=== PATIENT | female | born 1960 | race Caucasian/White ===

== ENCOUNTER → 2019-10-04 14:46 | Outpatient (BNVA) | payer MEDICARE, OTHER, SELFPAY | PROVIDERS: PCP Family Medicine; Visit Provider Internal Medicine Rheumatology | DX: M19.90 Unspecified osteoarthritis, unspecified site (principal); M06.4 Inflammatory polyarthropathy; M35.9 Systemic involvement of connective tissue, unspecified; Z79.899 Other long term (current) drug therapy; R79.82 Elevated C-reactive protein (CRP); K11.1 Hypertrophy of salivary gland; R76.8 Other specified abnormal immunological findings in serum; Z79.52 Long term (current) use of systemic steroids | CPT/HCPCS: 99214; 99999 ==

== ENCOUNTER → 2019-11-16 12:52 | Outpatient (BNVA) | payer MEDICARE, OTHER, SELFPAY | PROVIDERS: PCP Family Medicine; Visit Provider Internal Medicine Rheumatology | DX: R76.8 Other specified abnormal immunological findings in serum (principal); M35.9 Systemic involvement of connective tissue, unspecified; Z79.899 Other long term (current) drug therapy; M19.90 Unspecified osteoarthritis, unspecified site; K11.1 Hypertrophy of salivary gland; Z79.52 Long term (current) use of systemic steroids | CPT/HCPCS: 99214 ==

== ENCOUNTER → 2020-02-17 13:21 | Outpatient (BNVA) | payer MEDICARE, OTHER, SELFPAY | PROVIDERS: PCP Family Medicine; Visit Provider Internal Medicine Rheumatology | DX: M32.9 Systemic lupus erythematosus, unspecified (principal); M35.9 Systemic involvement of connective tissue, unspecified; R76.8 Other specified abnormal immunological findings in serum; M06.4 Inflammatory polyarthropathy; Z79.899 Other long term (current) drug therapy; M19.90 Unspecified osteoarthritis, unspecified site; K11.1 Hypertrophy of salivary gland; Z79.01 Long term (current) use of anticoagulants | CPT/HCPCS: 36415; 81001; 82570; 83516; 84156; 86038; 86160; 99214 ==

== ENCOUNTER 2020-05-02 12:55 | Outpatient (CLI) | payer MEDICARE, OTHER, SELFPAY ==
[2020-05-02 13:11] VITALS: BP 113/79; PULSE 93; RESP 16; TEMP 36.7; O2SAT 95
[2020-05-02] MEDS: acetaminophen 325 mg Tablet 975 MG PO (13:35)
[2020-05-02] MEDS: diphenhydrAMINE 25 mg Capsule PO (13:35)
[2020-05-02 15:10] VITALS: BP 129/82; PULSE 84; RESP 16; O2SAT 95
--- NOTE | 2020-05-02 15:19 | PC.NURSE ---
1510 pt resting with eyes closed, c/o of heart racing. at chair side. VS obtained. Auscultated heart tones. Occasional extra tone, otherwise regular with rate 84-90. VS WNL. Dr. Adamson notified.
[2020-05-02 15:49] VITALS: BP 150/95; PULSE 83; RESP 16
[2020-05-02 15:59] VITALS: BP 144/88; PULSE 80; RESP 16
== END 2020-05-02 12:56 | disposition home or self-care (01) ==
LOC: RHEOACUTE 12:58
PROVIDERS: PCP Family Medicine; Visit Provider Internal Medicine Rheumatology
DX: M32.9 Systemic lupus erythematosus, unspecified (principal); Z79.899 Other long term (current) drug therapy
CPT/HCPCS: 80076; 81001; 82565; 82570; 84156; 85025; 85651; 86140; 86160; 96365; 96375; J0490; J2920; J7050

== ENCOUNTER 2020-05-18 13:23 | Outpatient (CLI) | payer MEDICARE, OTHER, SELFPAY ==
[2020-05-18 13:20] VITALS: BP 146/84; PULSE 82; RESP 16; TEMP 36.5; O2SAT 95
[2020-05-18] MEDS: acetaminophen 325 mg Tablet 975 MG PO (13:51)
[2020-05-18] MEDS: diphenhydrAMINE 25 mg Capsule PO (13:51)
[2020-05-18 14:57] VITALS: BMI 36.7
--- NOTE | 2020-05-18 15:38 | PC.NURSE ---
1400 Benlysta infusion started at 125ml/hr for 30 min. After 30 min, increased rate to 250ml/hr
--- NOTE | 2020-05-18 15:40 | PC.NURSE ---
1540 Infusion complete. Pt sleeping. Resp even and unlabored. Tubing flushed with NS 10ml.
[2020-05-18 16:23] VITALS: BP 154/93; PULSE 77; RESP 16; O2SAT 97
--- NOTE | 2020-05-18 16:23 | PC.NURSE ---
1615 Pt awake. States she's ready to go home. Ambulated to BR without difficulty.
== END 2020-05-18 13:24 | disposition home or self-care (01) ==
LOC: RHEOACUTE 13:25
PROVIDERS: PCP Family Medicine; Visit Provider Internal Medicine Rheumatology
DX: M32.9 Systemic lupus erythematosus, unspecified (principal); R76.8 Other specified abnormal immunological findings in serum; Z79.899 Other long term (current) drug therapy; M06.4 Inflammatory polyarthropathy; M19.90 Unspecified osteoarthritis, unspecified site; K11.1 Hypertrophy of salivary gland; R74.0 Nonspecific elevation of levels of transaminase and lactic acid dehydrogenase [LDH]; Z79.52 Long term (current) use of systemic steroids
CPT/HCPCS: 81001; 82565; 82570; 84156; 84520; 96365; 96375; 99214; J0490; J2920; J7050

== ENCOUNTER → 2020-06-22 09:58 | Outpatient (BNVA) | payer MEDICARE, OTHER, SELFPAY ==
[2020-06-22 10:12] VITALS: BP 138/85; PULSE 77; RESP 16; TEMP 36.2; O2SAT 95
[2020-06-22] MEDS: diphenhydrAMINE 25 mg Capsule PO (10:50)
[2020-06-22] MEDS: acetaminophen 325 mg Tablet 975 MG PO (10:50)
--- NOTE | 2020-06-22 11:49 | PC.NURSE ---
1115 Infusion started at 125ml/hr.
--- NOTE | 2020-06-22 11:49 | PC.NURSE ---
1145 Infusion increased to 200ml/hr
[2020-06-22 12:50] VITALS: BP 146/89; PULSE 82; RESP 16
== END ==
PROVIDERS: PCP Family Medicine; Visit Provider Internal Medicine Rheumatology
DX: M32.9 Systemic lupus erythematosus, unspecified (principal); R76.8 Other specified abnormal immunological findings in serum; Z79.899 Other long term (current) drug therapy
CPT/HCPCS: 96365; 96366; 96375; J0490; J2920; J7050

== ENCOUNTER 2020-06-22 10:00 | Outpatient (CLI) | payer MEDICARE, OTHER, SELFPAY | END 2020-06-22 10:01 | disposition home or self-care (01) | LOC: RHEOACUTE 10:01 | PROVIDERS: PCP Family Medicine; Visit Provider Internal Medicine Rheumatology | DX: M32.9 Systemic lupus erythematosus, unspecified (principal); R76.8 Other specified abnormal immunological findings in serum; Z79.899 Other long term (current) drug therapy | CPT/HCPCS: 80076; 81001; 82565; 82570; 84156; 85025; 85651; 86140; 86160; 96365; 96366; 96375; J0490; J2920; J7050 ==

== ENCOUNTER 2020-08-01 09:58 | Outpatient (CLI) | payer MEDICARE, BC, OTHER, SELFPAY ==
[2020-08-01 10:00] VITALS: BP 127/80; PULSE 80; RESP 16; TEMP 36.6; O2SAT 93
[2020-08-01] MEDS: diphenhydrAMINE 25 mg Capsule PO (10:32)
[2020-08-01] MEDS: acetaminophen 325 mg Tablet 975 MG PO (10:33)
--- NOTE | 2020-08-01 12:06 | PC.NURSE ---
Infusion complete. Line flushed with saline. Pt asleep.
[2020-08-01 13:25] VITALS: BP 133/90; PULSE 81; RESP 16; O2SAT 96
== END 2020-08-01 09:59 | disposition home or self-care (01) ==
LOC: RHEOACUTE 09:59
PROVIDERS: PCP Family Medicine; Visit Provider Internal Medicine Rheumatology
DX: M32.9 Systemic lupus erythematosus, unspecified (principal)
CPT/HCPCS: 96365; 96375; J0490; J2920; J7050

== ENCOUNTER 2020-10-10 13:03 | Outpatient (CLI) | payer MEDICARE, BC, SELFPAY ==
[2020-10-10 13:24] VITALS: BP 138/86; PULSE 75; RESP 16; TEMP 36.2; O2SAT 98
[2020-10-10] MEDS: acetaminophen 325 mg Tablet 975 MG PO (13:46)
[2020-10-10] MEDS: diphenhydrAMINE 25 mg Capsule PO (13:46)
[2020-10-10 15:44] VITALS: BP 133/77; PULSE 82; RESP 16; O2SAT 97
== END 2020-10-10 13:04 | disposition home or self-care (01) ==
LOC: RHEOACUTE 13:05
PROVIDERS: PCP Family Medicine; Visit Provider Internal Medicine Rheumatology
DX: M32.9 Systemic lupus erythematosus, unspecified (principal)
CPT/HCPCS: 96365; 96375; J0490; J2920; J7050

== ENCOUNTER 2020-11-21 12:44 | Outpatient (CLI) | payer MEDICARE, BC, SELFPAY ==
[2020-11-21] MEDS: diphenhydrAMINE 25 mg Capsule PO (13:34)
[2020-11-21] MEDS: acetaminophen 325 mg Tablet 975 MG PO (13:34)
[2020-11-21 13:47] LABS: Basophils # 0.1 10^3/uL (0.0-0.1); Basophils % 0.7 %; Eosinophils # 0.3 10^3/uL (0.0-0.8); Eosinophils % 2.1 %; Hematocrit 44.4 % (37.0-47.0); Hemoglobin 14.5 g/dL (11.5-15.3); Lymphocytes # 1.4 10^3/uL (0.8-4.8); Lymphocytes % 11.6 %; Mean Corpuscular HGB Conc 32.7 g/dL (30.0-36.0); Mean Corpuscular Hemoglobin 31.9 pg (28.0-34.0); Mean Corpuscular Volume 97.6 fL (81-99); Mean Platelet Volume 12.3 fL (7.4-10.4); Monocytes # 0.9 10^3/uL (0.2-0.9); Neutrophils # 9.44 10^3/uL (1.8-7.7); Nucleated Red Blood Cells % 0 %; Platelet Count 212 10^3/cmm (130-400); Red Blood Count 4.55 10^6/uL (4.1-5.3); Red Cell Distribution Width 13.6 % (12.1-15.1); White Blood Count 12.1 10^3/uL (4.0-10.0)
[2020-11-21 13:50] VITALS: BP 144/80; PULSE 77; RESP 18; TEMP 36.5; O2SAT 95
[2020-11-21 14:22] VITALS: BP 126/74; PULSE 76; RESP 18; TEMP 36.4; O2SAT 94
[2020-11-21 15:28] VITALS: BP 148/77; PULSE 86; RESP 18; TEMP 36.6; O2SAT 95
[2020-11-21 15:42] LABS: Alanine Aminotransferase 38 U/L (0-33); Albumin Level 4.3 g/dL (3.5-5.2); Alkaline Phosphatase 71 IU/L (35-105); Aspartate Amino Transferase 26 U/L (0-32); C Reactive Protein 6.1 mg/L (0.0-4.9); Complement C3 145 mg/dL (90-180); Globulin 2.6 g/dL (1.3-4.6); Glomerular Filtration Rate 56.4 mL/min (90-130); Total Bilirubin 0.2 mg/dL (0.15-1.2); Total Protein 6.9 g/dL (6.6-8.7)
[2020-11-21 18:57] LABS: Add Urine Microscopic? NO; Bilirubin Urine Neg (Negative); Blood Urine Neg (Negative); Glucose Urine UA Norm (Normal); Ketones Urine Negative (Negative); Leukocyte Esterase Urine Negative (Negative); Nitrate Urine Negative (Negative); Protein Urine Neg (Negative); Specific Gravity, Urine 1.005 (1.005-1.030); Urine Appearance Clear (CLEAR); Urine Color Yellow (Yellow); Urobilinogen Urine Norm (Negative); pH Urine 5 (5-7)
[2020-11-22 00:26] LABS: Urine Creatinine 30 mg/dL (28-217); Urine Protein Random 9 mg/dL
--- NOTE | 2020-12-04 08:51 | PC.NURSE ---
Due to an administrative issue we are doing a late entry for clarity of the medical record. The infusion case was routine and the approximate stop time was 1450 based upon the start time of 1350.
== END 2020-11-21 12:45 | disposition home or self-care (01) ==
LOC: ONCMED 12:49
PROVIDERS: PCP Family Medicine; Visit Provider Internal Medicine Rheumatology
DX: M32.9 Systemic lupus erythematosus, unspecified (principal)
CPT/HCPCS: 80076; 81003; 82565; 82570; 84156; 85025; 86140; 86160; 96365; 96375; J0490; J2920; J7050

== ENCOUNTER 2020-12-19 13:00 | Outpatient (CLI) | payer MEDICARE, BC, SELFPAY ==
[2020-12-19 13:30] VITALS: BP 120/78; PULSE 80; RESP 18; TEMP 36.8; O2SAT 95
[2020-12-19] MEDS: diphenhydrAMINE 25 mg Capsule PO (13:30)
[2020-12-19] MEDS: acetaminophen 325 mg Tablet 975 MG PO (13:30)
[2020-12-19 14:50] VITALS: BP 107/62; PULSE 81; RESP 16; TEMP 37; O2SAT 94
== END 2020-12-19 13:01 | disposition home or self-care (01) ==
PROVIDERS: PCP Family Medicine; Visit Provider Internal Medicine Rheumatology
DX: M32.9 Systemic lupus erythematosus, unspecified (principal)
CPT/HCPCS: 96365; 96375; J0490; J2920; J7050

== ENCOUNTER → 2021-03-13 12:24 | Outpatient (BNVA) | payer MEDICARE, BC, SELFPAY | PROVIDERS: PCP Family Medicine; Visit Provider Internal Medicine Rheumatology | DX: M32.9 Systemic lupus erythematosus, unspecified (principal); Z79.899 Other long term (current) drug therapy; M19.90 Unspecified osteoarthritis, unspecified site; R74.01 Elevation of levels of liver transaminase levels; Z86.16 Personal history of COVID-19 | CPT/HCPCS: 99214 ==

== ENCOUNTER 2021-03-13 13:29 | Outpatient (CLI) | payer MEDICARE, BC, SELFPAY ==
[2021-03-13 14:06] VITALS: BP 125/81; PULSE 74; RESP 18; TEMP 36.5; O2SAT 95
[2021-03-13] MEDS: sodium chloride 0.9% 250 ML 75 ML IV (14:32)
[2021-03-13] MEDS: acetaminophen 325 mg Tablet 975 MG PO (14:36)
[2021-03-13] MEDS: diphenhydrAMINE 25 mg Capsule PO (14:36)
[2021-03-13 15:11] VITALS: BP 127/79; PULSE 67; RESP 18; TEMP 36.3; O2SAT 96
--- NOTE | 2021-03-13 15:32 | PC.NURSE ---
Pt complained of a headache approximately 20 minutes into infusion of Benlysta. Infusion was stopped and NS drip increased to 100 mL/hr for 22 minutes. Vital signs were stable, and Benlysta infusion was restarted after patient stated that her headache had improved.
[2021-03-13 16:27] VITALS: BP 125/81; PULSE 72; RESP 18; TEMP 36.4; O2SAT 95
== END 2021-03-13 13:30 | disposition home or self-care (01) ==
PROVIDERS: PCP Family Medicine; Referring Provider Internal Medicine Rheumatology; Visit Provider Internal Medicine Rheumatology
DX: M32.9 Systemic lupus erythematosus, unspecified (principal); Z79.899 Other long term (current) drug therapy; M19.90 Unspecified osteoarthritis, unspecified site; R74.01 Elevation of levels of liver transaminase levels; Z86.16 Personal history of COVID-19
CPT/HCPCS: 96365; 96366; 96375; 99214; J0490; J2920; J7050

== ENCOUNTER 2021-04-10 12:47 | Outpatient (CLI) | payer MEDICARE, BC, SELFPAY ==
[2021-04-10 13:06] VITALS: BP 127/77; PULSE 73; RESP 18; TEMP 36.3; O2SAT 96
[2021-04-10] MEDS: sodium chloride 0.9% 250 ML 75 ML IV (13:20)
[2021-04-10] MEDS: acetaminophen 325 mg Tablet 975 MG PO (13:22)
[2021-04-10] MEDS: diphenhydrAMINE 25 mg Capsule PO (13:22)
[2021-04-10 14:53] VITALS: BP 131/79; PULSE 68; RESP 18; TEMP 36.4; O2SAT 97
== END 2021-04-10 12:48 | disposition home or self-care (01) ==
LOC: ONCMED 12:50
PROVIDERS: PCP Family Medicine; Visit Provider Internal Medicine Rheumatology
DX: M32.9 Systemic lupus erythematosus, unspecified (principal)
CPT/HCPCS: 96365; 96375; J0490; J2920; J7050

== ENCOUNTER 2021-05-08 13:12 | Outpatient (CLI) | payer MEDICARE, BC, SELFPAY ==
[2021-05-08 13:34] VITALS: BP 120/69; PULSE 76; RESP 18; TEMP 36.6; O2SAT 96
[2021-05-08] MEDS: sodium chloride 0.9% 250 ML 75 ML IV (14:00)
[2021-05-08] MEDS: acetaminophen 325 mg Tablet 975 MG PO (14:01)
[2021-05-08] MEDS: diphenhydrAMINE 25 mg Capsule PO (14:01)
[2021-05-08 15:50] VITALS: BP 137/73; PULSE 78; RESP 18; TEMP 36.4; O2SAT 95
== END 2021-05-08 13:13 | disposition home or self-care (01) ==
PROVIDERS: PCP Family Medicine; Referring Provider Internal Medicine Rheumatology; Visit Provider Internal Medicine Rheumatology
DX: M32.9 Systemic lupus erythematosus, unspecified (principal)
CPT/HCPCS: 96365; 96375; J0490; J2920; J7050

== ENCOUNTER 2021-06-14 13:08 | Outpatient (CLI) | payer MEDICARE, BC, SELFPAY ==
[2021-06-14 13:32] VITALS: BP 148/86; PULSE 93; RESP 18; TEMP 36.8; O2SAT 95
[2021-06-14] MEDS: sodium chloride 0.9% 250 ML 75 ML IV (14:18)
[2021-06-14] MEDS: acetaminophen 325 mg Tablet 975 MG PO (14:19)
[2021-06-14] MEDS: diphenhydrAMINE 25 mg Capsule PO (14:19)
[2021-06-14 14:22] LABS: Basophils # 0.1 10^3/uL (0.0-0.1); Basophils % 0.7 %; Eosinophils # 0.4 10^3/uL (0.0-0.8); Hematocrit 42.2 % (37.0-47.0); Hemoglobin 13.9 g/dL (11.5-15.3); Lymphocytes # 1.7 10^3/uL (0.8-4.8); Lymphocytes % 16.5 %; Mean Corpuscular HGB Conc 32.9 g/dL (30.0-36.0); Mean Corpuscular Hemoglobin 31.1 pg (28.0-34.0); Mean Corpuscular Volume 94.4 fl (81-99); Monocytes # 0.7 10^3/uL (0.2-0.9); Neutrophils # 7.11 10^3/uL (1.8-7.7); Neutrophils % 71.3 %; Nucleated Red Blood Cells % 0 %; Platelet Count 230 10^3/cmm (130-400); Red Blood Count 4.47 10^6/uL (4.1-5.3); Red Cell Distribution Width 13.5 % (12.1-15.1)
[2021-06-14 14:31] LABS: Blood Urine Neg (Negative); Glucose Urine UA Norm (Normal); Ketones Urine Negative (Negative); Nitrate Urine Negative (Negative); Protein Urine Neg (Negative); Specific Gravity, Urine 1.015 (1.005-1.030); Urine Appearance Clear (CLEAR); Urine Color Yellow (Yellow); pH Urine 6.5 (5-7)
[2021-06-14 14:32] LABS: Bilirubin Urine Neg (Negative); Leukocyte Esterase Urine Negative (Negative); Urobilinogen Urine Norm (Negative)
[2021-06-14 14:40] LABS: RBC Urine 0-4 /hpf (0-2)
[2021-06-14 14:41] LABS: Add Urine Culture? No; Bacteria Urine 1+ /hpf; Mucus Urine 1+ /hpf; WBC Urine 0-4 /hpf (0-5)
[2021-06-14 14:55] LABS: Urine Creatinine 164 mg/dL (28-217)
[2021-06-14 14:58] LABS: Alanine Aminotransferase 31 U/L (0-33); Albumin Level 4.1 g/dL (3.5-5.2); Alkaline Phosphatase 99 IU/L (35-105); Aspartate Amino Transferase 23 U/L (0-32); C Reactive Protein 3.9 mg/L (0.0-4.9); Globulin 2.3 g/dL (1.3-4.6); Glomerular Filtration Rate 63.7 mL/min (90-130); Total Bilirubin 0.2 mg/dL (0.15-1.2); Total Protein 6.4 g/dL (6.6-8.7)
[2021-06-14 15:02] LABS: Urine Protein Random 26 mg/dL
[2021-06-14 15:36] VITALS: BP 145/81; PULSE 72; RESP 18; TEMP 36.7; O2SAT 98
== END 2021-06-14 13:09 | disposition home or self-care (01) ==
PROVIDERS: PCP Family Medicine; Visit Provider Internal Medicine Rheumatology
DX: M32.9 Systemic lupus erythematosus, unspecified (principal)
CPT/HCPCS: 80076; 81001; 82565; 82570; 84156; 85025; 86140; 96365; 96375; J0490; J2920; J7050

== ENCOUNTER 2021-07-11 11:03 | Outpatient (CLI) | payer MEDICARE, OTHER, SELFPAY ==
[2021-07-11 11:14] VITALS: BP 112/73; PULSE 73; RESP 18; TEMP 36.6; O2SAT 95
[2021-07-11] MEDS: acetaminophen 325 mg Tablet 975 MG PO (11:37)
[2021-07-11] MEDS: diphenhydrAMINE 25 mg Capsule PO (11:37)
[2021-07-11] MEDS: sodium chloride 0.9% 250 ML 75 ML IV (11:40)
[2021-07-11 13:09] VITALS: BP 113/77; PULSE 62; RESP 18; TEMP 36.2; O2SAT 94
== END 2021-07-11 11:04 | disposition home or self-care (01) ==
PROVIDERS: PCP Family Medicine; Referring Provider Internal Medicine Rheumatology; Visit Provider Internal Medicine Rheumatology
DX: M32.9 Systemic lupus erythematosus, unspecified (principal); M19.90 Unspecified osteoarthritis, unspecified site; R74.01 Elevation of levels of liver transaminase levels; Z79.899 Other long term (current) drug therapy; I48.91 Unspecified atrial fibrillation; Z79.01 Long term (current) use of anticoagulants; Z86.16 Personal history of COVID-19; Z71.89 Other specified counseling
CPT/HCPCS: 96365; 96375; 99214; J0490; J2920; J7050

== ENCOUNTER 2021-08-08 10:58 | Outpatient (CLI) | payer MEDICARE, OTHER, SELFPAY ==
[2021-08-08 11:33] VITALS: BP 117/73; PULSE 70; RESP 18; TEMP 36.5; O2SAT 96
[2021-08-08] MEDS: sodium chloride 0.9% 250 ML 75 ML IV (11:54)
[2021-08-08] MEDS: acetaminophen 325 mg Tablet 975 MG PO (11:55)
[2021-08-08] MEDS: diphenhydrAMINE 25 mg Capsule PO (11:55)
[2021-08-08 13:29] VITALS: BP 117/70; PULSE 63; RESP 18; TEMP 36.4; O2SAT 95
== END 2021-08-08 10:59 | disposition home or self-care (01) ==
PROVIDERS: PCP Family Medicine; Referring Provider Internal Medicine Rheumatology; Visit Provider Internal Medicine Rheumatology
DX: M32.9 Systemic lupus erythematosus, unspecified (principal)
CPT/HCPCS: 96365; 96375; J0490; J2920; J7050

== ENCOUNTER 2021-09-19 13:03 | Outpatient (CLI) | payer MEDICARE, OTHER, SELFPAY ==
[2021-09-19 13:37] VITALS: BP 120/79; PULSE 66; RESP 18; TEMP 36.4; O2SAT 98
[2021-09-19] MEDS: acetaminophen 325 mg Tablet 650 MG PO (13:59)
[2021-09-19 14:00] LABS: Basophils # 0.1 10^3/uL (0.0-0.1); Basophils % 0.8 %; Eosinophils # 0.5 10^3/uL (0.0-0.8); Eosinophils % 5.5 %; Hemoglobin 14.3 g/dL (11.5-15.3); Lymphocytes # 1.9 10^3/uL (0.8-4.8); Lymphocytes % 21.8 %; Mean Corpuscular HGB Conc 33.3 g/dL (30.0-36.0); Mean Corpuscular Hemoglobin 31.5 pg (28.0-34.0); Mean Corpuscular Volume 94.7 fl (81-99); Mean Platelet Volume 12.2 fL (7.4-10.4); Monocytes # 0.8 10^3/uL (0.2-0.9); Monocytes % 9.2 %; Neutrophils # 5.49 10^3/uL (1.8-7.7); Neutrophils % 62.4 %; Nucleated Red Blood Cells % 0 %; Platelet Count 219 10^3/cmm (130-400); Red Blood Count 4.54 10^6/uL (4.1-5.3); Red Cell Distribution Width 13.5 % (12.1-15.1); White Blood Count 8.8 10^3/uL (4.0-10.0)
[2021-09-19] MEDS: sodium chloride 0.9% 250 ML 75 ML IV (14:01)
[2021-09-19] MEDS: diphenhydrAMINE 50 mg/mL SDV 1mL 25 MG IV (14:10)
[2021-09-19 14:19] LABS: Alanine Aminotransferase 21 U/L (0-33); Albumin Level 4.2 g/dL (3.5-5.2); Alkaline Phosphatase 79 IU/L (35-105); Aspartate Amino Transferase 18 U/L (0-32); Globulin 2.4 g/dL (1.3-4.6); Glomerular Filtration Rate 63.4 mL/min (90-130); Total Bilirubin 0.2 mg/dL (0.15-1.2); Total Protein 6.6 g/dL (6.6-8.7)
[2021-09-19 14:20] LABS: Add Urine Microscopic? NO; Bilirubin Urine Neg (Negative); Blood Urine Neg (Negative); Glucose Urine UA Norm (Normal); Ketones Urine Negative (Negative); Leukocyte Esterase Urine Negative (Negative); Nitrate Urine Negative (Negative); Protein Urine Neg (Negative); Urine Appearance Hazy (CLEAR); Urine Color Yellow (Yellow); Urobilinogen Urine Norm (Negative); pH Urine 5 (5-7)
[2021-09-19 14:22] LABS: Charge for UA Resulting for Rev
[2021-09-19 14:37] LABS: Urine Creatinine 88 mg/dL (28-217); Urine Protein Random 17 mg/dL
[2021-09-19 15:27] VITALS: BP 125/75; PULSE 62; RESP 18; TEMP 36.4; O2SAT 99
== END 2021-09-19 13:04 | disposition home or self-care (01) ==
PROVIDERS: PCP Family Medicine; Visit Provider Internal Medicine Rheumatology
DX: M32.9 Systemic lupus erythematosus, unspecified (principal); Z79.899 Other long term (current) drug therapy
CPT/HCPCS: 80076; 81003; 82565; 82570; 84156; 85025; 96365; 96375; J0490; J1200; J2920; J7050

== ENCOUNTER 2021-10-18 10:47 | Outpatient (CLI) | payer MEDICARE, OTHER, SELFPAY ==
[2021-10-18] MEDS: sodium chloride 0.9% 250 ML 30 ML IV (11:50)
[2021-10-18] MEDS: diphenhydrAMINE 50 mg/mL SDV 1mL 25 MG IV (11:51)
[2021-10-18] MEDS: acetaminophen 325 mg Tablet 650 MG PO (11:51)
[2021-10-18 12:03] LABS: Basophils # 0.1 10^3/uL (0.0-0.1); Basophils % 0.8 %; Eosinophils # 0.6 10^3/uL (0.0-0.8); Eosinophils % 5.5 %; Hematocrit 43.9 % (37.0-47.0); Hemoglobin 14.2 g/dL (11.5-15.3); Lymphocytes # 2.5 10^3/uL (0.8-4.8); Lymphocytes % 21.6 %; Mean Corpuscular HGB Conc 32.3 g/dL (30.0-36.0); Mean Corpuscular Hemoglobin 31.5 pg (28.0-34.0); Mean Corpuscular Volume 97.3 fl (81-99); Mean Platelet Volume 12.1 fL (7.4-10.4); Monocytes # 1.4 10^3/uL (0.2-0.9); Monocytes % 12.3 %; Neutrophils # 6.94 10^3/uL (1.8-7.7); Neutrophils % 59.5 %; Nucleated Red Blood Cells % 0 %; Platelet Count 231 10^3/cmm (130-400); Red Blood Count 4.51 10^6/uL (4.1-5.3); Red Cell Distribution Width 13.9 % (12.1-15.1); White Blood Count 11.7 10^3/uL (4.0-10.0)
[2021-10-18 12:24] LABS: Add Urine Microscopic? YES; Bilirubin Urine Neg (Negative); Blood Urine Neg (Negative); Glucose Urine UA Norm (Normal); Ketones Urine Negative (Negative); Leukocyte Esterase Urine 1+ (Negative); Nitrate Urine Negative (Negative); Protein Urine Neg (Negative); Urine Appearance Clear (CLEAR); Urine Color Yellow (Yellow); Urobilinogen Urine Norm (Negative); pH Urine 5 (5-7)
[2021-10-18 12:25] LABS: Add Urine Culture? No; Bacteria Urine 1+ /hpf; Urine Creatinine 129 mg/dL (28-217)
[2021-10-18 12:26] LABS: Urine Protein Random 22 mg/dL
[2021-10-18 12:46] LABS: Alanine Aminotransferase 21 U/L (0-33); Albumin Level 4.3 g/dL (3.5-5.2); Alkaline Phosphatase 84 IU/L (35-105); Aspartate Amino Transferase 18 U/L (0-32); Globulin 2.1 g/dL (1.3-4.6); Glomerular Filtration Rate 72.7 mL/min (90-130); Total Bilirubin 0.2 mg/dL (0.15-1.2); Total Protein 6.4 g/dL (6.6-8.7)
== END 2021-10-18 10:48 | disposition home or self-care (01) ==
PROVIDERS: PCP Family Medicine; Visit Provider Internal Medicine Rheumatology
DX: M32.9 Systemic lupus erythematosus, unspecified (principal)
CPT/HCPCS: 80076; 81001; 82565; 82570; 84156; 85025; 96365; 96375; J0490; J1200; J2920; J7050

== ENCOUNTER 2021-11-13 11:48 | Outpatient (CLI) | payer MEDICARE, OTHER, SELFPAY ==
[2021-11-13 12:02] VITALS: BP 121/68; PULSE 68; RESP 18; TEMP 36.6; O2SAT 96
[2021-11-13] MEDS: acetaminophen 325 mg Tablet 650 MG PO (12:25)
[2021-11-13] MEDS: diphenhydrAMINE 50 mg/mL SDV 1mL 25 MG IV (12:28)
[2021-11-13] MEDS: sodium chloride 0.9% 250 ML 50 ML IV (12:28)
[2021-11-13 13:58] VITALS: BP 100/64; PULSE 67; RESP 18; TEMP 36.7; O2SAT 96
== END 2021-11-13 11:49 | disposition home or self-care (01) ==
PROVIDERS: PCP Family Medicine; Referring Provider Internal Medicine Rheumatology; Visit Provider Internal Medicine Medical Oncology
DX: M32.9 Systemic lupus erythematosus, unspecified (principal); M19.90 Unspecified osteoarthritis, unspecified site; Z79.899 Other long term (current) drug therapy; K11.1 Hypertrophy of salivary gland; R74.01 Elevation of levels of liver transaminase levels; Z79.01 Long term (current) use of anticoagulants; Z86.16 Personal history of COVID-19; Z71.89 Other specified counseling
CPT/HCPCS: 96365; 96375; 99214; J0490; J1200; J2920; J7050

== ENCOUNTER 2021-12-11 10:33 | Outpatient (CLI) | payer MEDICARE, OTHER, SELFPAY ==
[2021-12-11 10:44] VITALS: BP 123/79; PULSE 65; RESP 18; TEMP 36.4; O2SAT 96
[2021-12-11] MEDS: sodium chloride 0.9% 250 ML 50 ML IV (11:05)
[2021-12-11] MEDS: diphenhydrAMINE 50 mg/mL SDV 1mL 25 MG IV (11:06)
[2021-12-11] MEDS: acetaminophen 325 mg Tablet 650 MG PO (11:06)
[2021-12-11 12:35] VITALS: BP 109/70; PULSE 65; RESP 18; TEMP 36.6; O2SAT 94
== END 2021-12-11 10:34 | disposition home or self-care (01) ==
PROVIDERS: PCP Family Medicine; Referring Provider Internal Medicine Rheumatology; Visit Provider Internal Medicine Rheumatology
DX: M32.9 Systemic lupus erythematosus, unspecified (principal)
CPT/HCPCS: 96365; 96375; J0490; J1200; J2920; J7050

== ENCOUNTER 2022-01-09 13:46 | Outpatient (CLI) | payer MEDICARE, OTHER, SELFPAY ==
[2022-01-09 14:17] VITALS: BP 126/80; PULSE 60; RESP 18; TEMP 36.5; O2SAT 95
[2022-01-09 14:29] LABS: Basophils # 0.1 10^3/uL (0.0-0.1); Basophils % 0.7 %; Eosinophils # 0.4 10^3/uL (0.0-0.8); Eosinophils % 3.1 %; Hematocrit 41.5 % (37.0-47.0); Lymphocytes # 2.5 10^3/uL (0.8-4.8); Lymphocytes % 17.7 %; Mean Corpuscular HGB Conc 33.7 g/dL (30.0-36.0); Mean Corpuscular Hemoglobin 31.4 pg (28.0-34.0); Mean Platelet Volume 12.6 fL (7.4-10.4); Monocytes # 1.3 10^3/uL (0.2-0.9); Monocytes % 8.9 %; Neutrophils # 9.68 10^3/uL (1.8-7.7); Neutrophils % 69.2 %; Nucleated Red Blood Cells % 0 %; Platelet Count 226 10^3/cmm (130-400); Red Blood Count 4.46 10^6/uL (4.1-5.3); Red Cell Distribution Width 13.2 % (12.1-15.1)
[2022-01-09] MEDS: acetaminophen 325 mg Tablet 650 MG PO (14:30)
[2022-01-09] MEDS: sodium chloride 0.9% 250 ML 50 ML IV (14:32)
[2022-01-09] MEDS: diphenhydrAMINE 50 mg/mL SDV 1mL 25 MG IV (14:33)
[2022-01-09 14:46] LABS: Bilirubin Urine Neg (Negative); Blood Urine Neg (Negative); Glucose Urine UA Norm (Normal); Ketones Urine Negative (Negative); Leukocyte Esterase Urine 1+ (Negative); Nitrate Urine Negative (Negative); Protein Urine Neg (Negative); Specific Gravity, Urine 1.025 (1.005-1.030); Urine Appearance Clear (CLEAR); Urine Color Yellow (Yellow); Urobilinogen Urine Norm (Negative); pH Urine 5 (5-7)
[2022-01-09 14:48] LABS: Add Urine Microscopic? YES
[2022-01-09 14:52] LABS: Urine Creatinine 144 mg/dL (28-217); Urine Protein Random 20 mg/dL
[2022-01-09 14:53] LABS: Bacteria Urine TRACE /hpf; Mucus Urine N /hpf; Other Crystals Urine N /hpf; Renal Epithelial Cells Urine N /hpf
[2022-01-09 14:54] LABS: Add Urine Culture? No; Other Casts Urine N /lpf; Other Sediment, Urine N
[2022-01-09 14:55] LABS: Alanine Aminotransferase 45 U/L (0-33); Albumin Level 4.2 g/dL (3.5-5.2); Alkaline Phosphatase 78 IU/L (35-105); Aspartate Amino Transferase 35 U/L (0-32); Globulin 2.4 g/dL (1.3-4.6); Glomerular Filtration Rate 56.2 mL/min (90-130); Total Bilirubin 0.3 mg/dL (0.15-1.2); Total Protein 6.6 g/dL (6.6-8.7)
[2022-01-09 15:11] LABS: Uric Acid Crystals Urine R /hpf
[2022-01-09 15:55] VITALS: BP 125/78; PULSE 61; RESP 18; TEMP 36.4; O2SAT 94
== END 2022-01-09 13:47 | disposition home or self-care (01) ==
PROVIDERS: PCP Family Medicine; Referring Provider Internal Medicine Rheumatology; Visit Provider Internal Medicine Rheumatology
DX: M32.9 Systemic lupus erythematosus, unspecified (principal); Z79.899 Other long term (current) drug therapy
CPT/HCPCS: 80076; 81001; 82565; 82570; 84156; 85025; 96365; 96375; J0490; J1200; J2920; J7050

== ENCOUNTER 2022-02-13 11:59 | Outpatient (CLI) | payer MEDICARE, OTHER, SELFPAY ==
[2022-02-13 12:22] VITALS: BP 110/73; PULSE 74; RESP 18; TEMP 36.3; O2SAT 95
[2022-02-13] MEDS: sodium chloride 0.9% 250 ML 50 ML IV (13:25)
[2022-02-13] MEDS: acetaminophen 325 mg Tablet 650 MG PO (13:26)
[2022-02-13] MEDS: diphenhydrAMINE 50 mg/mL SDV 1mL 25 MG IVP (13:27)
[2022-02-13 14:49] VITALS: BP 115/69; PULSE 59; RESP 16; TEMP 36.1; O2SAT 93
== END 2022-02-13 12:00 | disposition home or self-care (01) ==
LOC: ONCMED 12:00
PROVIDERS: PCP Family Medicine; Referring Provider Internal Medicine Rheumatology; Visit Provider Internal Medicine Rheumatology
DX: M32.9 Systemic lupus erythematosus, unspecified (principal)
CPT/HCPCS: 96365; 96375; J0490; J1200; J2920; J7050

== ENCOUNTER 2022-03-13 12:19 | Outpatient (CLI) | payer MEDICARE, OTHER, SELFPAY ==
[2022-03-13 12:35] VITALS: BP 108/73; PULSE 65; RESP 18; TEMP 36.3; O2SAT 93
[2022-03-13] MEDS: sodium chloride 0.9% 250 ML 50 ML IV (13:07)
[2022-03-13] MEDS: acetaminophen 325 mg Tablet 650 MG PO (13:08)
[2022-03-13] MEDS: diphenhydrAMINE 50 mg/mL SDV 1mL 25 MG IVP (13:09)
[2022-03-13 14:37] VITALS: BP 111/73; PULSE 62; RESP 18; TEMP 36.3; O2SAT 91
== END 2022-03-13 12:20 | disposition home or self-care (01) ==
PROVIDERS: PCP Family Medicine; Referring Provider Internal Medicine Rheumatology; Visit Provider Internal Medicine Rheumatology
DX: M32.9 Systemic lupus erythematosus, unspecified (principal); M19.90 Unspecified osteoarthritis, unspecified site; Z79.899 Other long term (current) drug therapy; K11.1 Hypertrophy of salivary gland; R74.01 Elevation of levels of liver transaminase levels; Z86.16 Personal history of COVID-19; Z79.01 Long term (current) use of anticoagulants; Z71.89 Other specified counseling
CPT/HCPCS: 96365; 96375; 99214; J0490; J1200; J2920; J7050

== ENCOUNTER 2022-04-09 11:00 | Outpatient (CLI) | payer MEDICARE, OTHER, SELFPAY ==
[2022-04-09 11:35] VITALS: BP 149/92; PULSE 62; RESP 18; TEMP 36.3; O2SAT 96
[2022-04-09 11:44] LABS: Add Urine Microscopic? NO; Charge for UA Resulting for Rev
[2022-04-09 11:48] LABS: Basophils # 0.1 10^3/uL (0.0-0.1); Basophils % 0.8 %; Eosinophils # 0.9 10^3/uL (0.0-0.8); Eosinophils % 8.4 %; Hematocrit 43.6 % (37.0-47.0); Hemoglobin 14.3 g/dL (11.5-15.3); Lymphocytes # 1.6 10^3/uL (0.8-4.8); Mean Corpuscular HGB Conc 32.8 g/dL (30.0-36.0); Mean Corpuscular Hemoglobin 30.4 pg (28.0-34.0); Mean Corpuscular Volume 92.6 fl (81-99); Mean Platelet Volume 12.1 fL (7.4-10.4); Monocytes # 0.9 10^3/uL (0.2-0.9); Monocytes % 8.3 %; Neutrophils # 6.79 10^3/uL (1.8-7.7); Nucleated Red Blood Cells % 0 %; Platelet Count 228 10^3/cmm (130-400); Red Blood Count 4.71 10^6/uL (4.1-5.3); Red Cell Distribution Width 13.4 % (12.1-15.1); White Blood Count 10.3 10^3/uL (4.0-10.0)
[2022-04-09 11:48] LABS: Bilirubin Urine Neg (Negative); Blood Urine Neg (Negative); Glucose Urine UA Norm (Normal); Ketones Urine Negative (Negative); Leukocyte Esterase Urine Negative (Negative); Nitrate Urine Negative (Negative); Protein Urine Neg (Negative); Specific Gravity, Urine 1.015 (1.005-1.030); Urine Appearance Clear (CLEAR); Urine Color Yellow (Yellow); Urobilinogen Urine Norm (Negative); pH Urine 5 (5-7)
[2022-04-09] MEDS: sodium chloride 0.9% 250 ML 50 ML IV (11:56)
[2022-04-09] MEDS: acetaminophen 325 mg Tablet 650 MG PO (11:57)
[2022-04-09] MEDS: diphenhydrAMINE 50 mg/mL SDV 1mL 25 MG IVP (11:58)
[2022-04-09 12:09] LABS: Alanine Aminotransferase 22 U/L (0-33); Albumin Level 4.5 g/dL (3.5-5.2); Alkaline Phosphatase 75 IU/L (35-105); Aspartate Amino Transferase 20 U/L (0-32); Globulin 2.4 g/dL (1.3-4.6); Glomerular Filtration Rate 56.2 mL/min (90-130); Total Bilirubin 0.3 mg/dL (0.15-1.2); Total Protein 6.9 g/dL (6.6-8.7)
[2022-04-09 12:11] LABS: Urine Creatinine 75 mg/dL (28-217); Urine Protein Random 13 mg/dL
[2022-04-09 13:59] VITALS: BP 107/71; PULSE 66; RESP 18; TEMP 36.2; O2SAT 93
== END 2022-04-09 11:01 | disposition home or self-care (01) ==
PROVIDERS: PCP Family Medicine; Referring Provider Internal Medicine Rheumatology; Visit Provider Internal Medicine Rheumatology
DX: M32.9 Systemic lupus erythematosus, unspecified (principal); Z79.899 Other long term (current) drug therapy
CPT/HCPCS: 80076; 81003; 82565; 82570; 84156; 85025; 96365; 96375; J0490; J1200; J2920; J7050

== ENCOUNTER 2022-05-07 11:59 | Outpatient (CLI) | payer MEDICARE, OTHER, SELFPAY ==
[2022-05-07 12:45] VITALS: BP 114/69; PULSE 75; RESP 18; TEMP 36.4; O2SAT 97
[2022-05-07] MEDS: sodium chloride 0.9% 250 ML 50 ML IV (12:58)
[2022-05-07] MEDS: acetaminophen 325 mg Tablet 650 MG PO (12:59)
[2022-05-07] MEDS: diphenhydrAMINE 50 mg/mL SDV 1mL 25 MG IVP (13:00)
[2022-05-07 14:31] VITALS: BP 116/76; PULSE 71; RESP 18; TEMP 36.3; O2SAT 94
== END 2022-05-07 12:00 | disposition home or self-care (01) ==
PROVIDERS: PCP Family Medicine; Referring Provider Internal Medicine Rheumatology; Visit Provider Internal Medicine Rheumatology
DX: M32.9 Systemic lupus erythematosus, unspecified (principal)
CPT/HCPCS: 96365; 96375; J0490; J1200; J2920; J7050

== ENCOUNTER 2022-06-05 10:56 | Outpatient (CLI) | payer MEDICARE, OTHER, SELFPAY ==
[2022-06-05 11:18] VITALS: BP 110/65; PULSE 57; RESP 18; TEMP 36.6; O2SAT 97
[2022-06-05] MEDS: sodium chloride 0.9% 250 ML 50 ML IV (11:46)
[2022-06-05] MEDS: acetaminophen 325 mg Tablet 650 MG PO (11:47)
[2022-06-05] MEDS: diphenhydrAMINE 50 mg/mL SDV 1mL 25 MG IVP (11:51)
[2022-06-05 13:15] VITALS: BP 107/67; PULSE 62; RESP 18; TEMP 36.5; O2SAT 93
== END 2022-06-05 10:57 | disposition home or self-care (01) ==
PROVIDERS: PCP Family Medicine; Visit Provider Internal Medicine Rheumatology
DX: M32.9 Systemic lupus erythematosus, unspecified (principal)
CPT/HCPCS: 96365; 96375; J0490; J1200; J2920; J7050

== ENCOUNTER → 2022-07-22 13:05 | Outpatient (BNVA) | payer MEDICARE, OTHER, SELFPAY | PROVIDERS: PCP Family Medicine; Visit Provider Internal Medicine Rheumatology | DX: M32.9 Systemic lupus erythematosus, unspecified (principal); M19.90 Unspecified osteoarthritis, unspecified site; Z79.899 Other long term (current) drug therapy; R23.2 Flushing; R76.8 Other specified abnormal immunological findings in serum; R21 Rash and other nonspecific skin eruption; L56.8 Other specified acute skin changes due to ultraviolet radiation; K11.1 Hypertrophy of salivary gland; Z79.01 Long term (current) use of anticoagulants; Z98.890 Other specified postprocedural states; Z86.16 Personal history of COVID-19; R05.9 Cough, unspecified | CPT/HCPCS: 99214 ==

== ENCOUNTER → 2022-10-22 09:04 | Outpatient (BNVA) | payer MEDICARE, OTHER, SELFPAY | PROVIDERS: PCP Family Medicine; Visit Provider Internal Medicine Rheumatology | DX: M32.9 Systemic lupus erythematosus, unspecified (principal); M19.90 Unspecified osteoarthritis, unspecified site; Z79.899 Other long term (current) drug therapy; R23.2 Flushing | CPT/HCPCS: 99214 ==

== ENCOUNTER → 2023-01-21 09:26 | Outpatient (BNVA) | payer MEDICARE, OTHER, SELFPAY | PROVIDERS: PCP Family Medicine; Visit Provider Internal Medicine Rheumatology | DX: M32.9 Systemic lupus erythematosus, unspecified (principal); Z79.899 Other long term (current) drug therapy; M19.90 Unspecified osteoarthritis, unspecified site | CPT/HCPCS: 99214 ==

== ENCOUNTER → 2023-04-22 09:12 | Outpatient (BNVA) | payer MEDICARE, OTHER, SELFPAY | PROVIDERS: PCP Family Medicine; Visit Provider Internal Medicine Rheumatology | DX: M32.9 Systemic lupus erythematosus, unspecified (principal); M19.90 Unspecified osteoarthritis, unspecified site; Z79.899 Other long term (current) drug therapy | CPT/HCPCS: 99214 ==

== ENCOUNTER → 2023-10-29 14:47 | Outpatient (BNVA) | payer MEDICARE, OTHER, SELFPAY | PROVIDERS: PCP Family Medicine; Visit Provider Internal Medicine Rheumatology | DX: Z79.899 Other long term (current) drug therapy (principal); M19.90 Unspecified osteoarthritis, unspecified site; M32.9 Systemic lupus erythematosus, unspecified; M35.9 Systemic involvement of connective tissue, unspecified | CPT/HCPCS: 99214 ==

== ENCOUNTER 2024-02-25 13:14 | Outpatient (CLI) | payer MEDICARE, OTHER, SELFPAY ==
[2024-02-25 14:51] LABS: Basophils # 0.1 10^3/uL (0.0-0.1); Basophils % 0.9 %; Eosinophils # 0.8 10^3/uL (0.0-0.8); Eosinophils % 7.5 %; Hematocrit 41.4 % (36-47); Lymphocytes # 2.3 10^3/uL (0.8-4.8); Lymphocytes % 21.2 %; Mean Corpuscular HGB Conc 33.1 g/dL (30-55); Mean Corpuscular Hemoglobin 31.1 pg (27-33); Mean Corpuscular Volume 94.1 fl (85-98); Mean Platelet Volume 11.2 fL (7.4-10.4); Monocytes % 9.2 %; Neutrophils # 6.44 10^3/uL (1.8-7.7); Neutrophils % 60.6 %; Nucleated Red Blood Cells % 0 %; Platelet Count 238 10^3/cmm (157-399); Red Cell Distribution Width 12.7 % (12.1-15.1); White Blood Count 10.64 10^3/uL (3.29-11.43)
[2024-02-25 15:11] LABS: Alanine Aminotransferase 14 U/L (0-33); Albumin Level 4.4 g/dL (3.5-5.2); Alkaline Phosphatase 69 U/L (35-105); Aspartate Amino Transferase 17 U/L (0-32); C Reactive Protein 3.5 mg/L (0.0-4.9); Globulin 2.5 g/dL (1.3-4.6); Total Bilirubin 0.2 mg/dL (0.15-1.2); Total Protein 6.9 g/dL (6.6-8.7)
[2024-03-08 12:14] LABS: TPMT Activity 14
== END 2024-02-25 13:15 | disposition home or self-care (01) ==
LOC: LAB 13:17
PROVIDERS: PCP Family Medicine; Visit Provider Internal Medicine Rheumatology
DX: M32.9 Systemic lupus erythematosus, unspecified (principal); Z79.899 Other long term (current) drug therapy; M13.80 Other specified arthritis, unspecified site; K11.1 Hypertrophy of salivary gland; K76.0 Fatty (change of) liver, not elsewhere classified; R05.9 Cough, unspecified
CPT/HCPCS: 36415; 80076; 82565; 82657; 85025; 86140; 99214

== ENCOUNTER → 2024-07-07 13:43 | Outpatient (BNVA) | payer MEDICARE, OTHER, SELFPAY | PROVIDERS: PCP Family Medicine; Visit Provider Internal Medicine Rheumatology | DX: M32.9 Systemic lupus erythematosus, unspecified (principal); M19.90 Unspecified osteoarthritis, unspecified site; Z79.899 Other long term (current) drug therapy; K11.1 Hypertrophy of salivary gland; K76.0 Fatty (change of) liver, not elsewhere classified; Z87.81 Personal history of (healed) traumatic fracture | CPT/HCPCS: 99214 ==

== ENCOUNTER 2024-07-19 10:33 | Oncology outpatient (recurring) (ONCR) | payer MEDICARE, OTHER, SELFPAY ==
[2024-07-19 10:40] VITALS: BP 129/73; PULSE 62; RESP 16; TEMP 36.6; O2SAT 91
[2024-07-19] MEDS: famotidine 20 mg Tablet PO (11:01)
[2024-07-19] MEDS: acetaminophen 325 mg Tablet 650 MG PO (11:01)
[2024-07-19] MEDS: diphenhydrAMINE 50 mg/mL SDV 1mL 25 MG IVP (11:03)
[2024-07-19] MEDS: anifrolumab-fnia 300 MG in sodium chloride 0.9% (100 ml) 100 ML 204 MG IV (11:34)
[2024-07-19 12:14] VITALS: BP 141/79; PULSE 89; TEMP 36.5; O2SAT 96
== END 2024-07-29 23:59 | disposition home or self-care (01) ==
PROVIDERS: PCP Family Medicine; Visit Provider Internal Medicine Rheumatology
DX: Z79.899 Other long term (current) drug therapy (principal); M32.9 Systemic lupus erythematosus, unspecified
CPT/HCPCS: 96375; 96413; J0491; J1200

== ENCOUNTER 2024-07-26 08:17 | Outpatient (CLI) | payer MEDICARE, OTHER, SELFPAY ==
--- NOTE | 2024-07-26 09:00 | US_ITS ---
WS: [id number] Complete ABDOMINAL ULTRASOUND HISTORY: R10.9 - Unspecified abdominal pain COMPARISON: None available. Liver: 14.8 cm in length. Liver is poorly incompletely visualized due to body habitus. No masses iden tified. No bile duct dilatation. Portal Vein: Normal hepatopetal flow with monophasic waveform. Gallbladder: Status post cholecystectomy. CBD: 0.3 cm Pancreas: Completely obscured by bowel gas. Right kidney: 9.1 cm x 4.3 x 4.7 cm. Cortex:1.0 cm. Normal size and echogenicity. No hydronephrosis or mass. Left kidney: 9.8 cm x 4.8 cm x 4.4 cm. Cortex: 1.1 cm. Normal size and echogenicity. No hydronephrosis or mass. Spleen: 8.5 cm. Normal size and echogenicity. Aorta and IVC: Unremarkable abdominal aorta and IVC. US/US abdomen complete* [id number] Impression: 1. Prior cholecystectomy. 2. Completely obscured pancreas by bowel gas. 3. No renal obstruction. 4. Normal common bile duct.
== END 2024-07-26 08:18 | disposition home or self-care (01) ==
LOC: RAD 08:18
PROVIDERS: PCP Family Medicine; Visit Provider Internal Medicine Rheumatology
DX: R10.9 Unspecified abdominal pain (principal); Z90.49 Acquired absence of other specified parts of digestive tract
CPT/HCPCS: 76700

== ENCOUNTER 2024-08-16 10:58 | Oncology outpatient (recurring) (ONCR) | payer MEDICARE, OTHER, SELFPAY ==
[2024-08-16 11:17] VITALS: BP 122/69; PULSE 60; RESP 16; TEMP 36.9; O2SAT 95
[2024-08-16] MEDS: diphenhydrAMINE 25 mg Capsule PO (11:49)
[2024-08-16] MEDS: famotidine 20 mg Tablet PO (11:50)
[2024-08-16] MEDS: acetaminophen 325 mg Tablet 650 MG PO (11:50)
[2024-08-16] MEDS: anifrolumab-fnia 300 MG in sodium chloride 0.9% (100 ml) 100 ML 204 MG IV (12:16)
[2024-08-16 15:41] VITALS: BP 125/77; PULSE 55; RESP 16; TEMP 35.9; O2SAT 96
== END 2024-08-28 23:59 | disposition home or self-care (01) ==
PROVIDERS: PCP Family Medicine; Visit Provider Internal Medicine Rheumatology
DX: M32.9 Systemic lupus erythematosus, unspecified (principal); Z79.899 Other long term (current) drug therapy
CPT/HCPCS: 96413; A4222; J0491

== ENCOUNTER 2024-11-03 14:25 | Oncology outpatient (recurring) (ONCR) | payer MEDICARE, OTHER, SELFPAY ==
[2024-11-03] MEDS: diphenhydrAMINE 25 mg Capsule PO (15:21)
[2024-11-03] MEDS: acetaminophen 325 mg Tablet 650 MG PO (15:21)
[2024-11-03] MEDS: famotidine 20 mg Tablet PO (15:22)
[2024-11-03 15:27] VITALS: BP 139/79; PULSE 59; RESP 16; TEMP 37.1; O2SAT 97
[2024-11-03 15:33] LABS: Basophils # 0.1 10^3/uL (0.0-0.1); Basophils % 0.7 %; Eosinophils # 0.3 10^3/uL (0.0-0.8); Hematocrit 39.8 % (36-47); Lymphocytes # 1.6 10^3/uL (0.8-4.8); Mean Corpuscular HGB Conc 33.2 g/dL (30-55); Mean Corpuscular Hemoglobin 31.3 pg (27-33); Mean Corpuscular Volume 94.3 fl (85-98); Mean Platelet Volume 11.6 fL (7.4-10.4); Monocytes # 0.8 10^3/uL (0.2-0.9); Monocytes % 7.7 %; Neutrophils % 72.2 %; Nucleated Red Blood Cells % 0 %; Platelet Count 257 10^3/cmm (157-399); Red Blood Count 4.22 10^6/uL (3.85-5.65); Red Cell Distribution Width 14.4 % (12.1-15.1); White Blood Count 9.98 10^3/uL (3.29-11.43)
[2024-11-03 15:38] LABS: Bilirubin Urine Negative (Negative); Blood Urine Negative (Negative); Glucose Urine UA Negative (Normal); Ketones Urine Negative (Negative); Leukocyte Esterase Urine Negative (Negative); Nitrate Urine Negative (Negative); Protein Urine Negative (Negative); Specific Gravity, Urine 1.021 (1.005-1.030); Urine Appearance Clear (CLEAR); Urine Color Yellow (Yellow); Urobilinogen Urine 0.2 mg/dL (Negative); pH Urine 5.5 (5-7)
[2024-11-03 15:44] LABS: Bacteria Urine None Seen /hpf; Hyaline Casts Urine 0-4 /lpf; RBC Urine 0-2 /hpf (0-2); Squamous Epithelial Cell Urine 0-5 /hpf (0-5); WBC Urine 0-5 /hpf (0-5)
[2024-11-03 15:44] LABS: Alanine Aminotransferase 10 U/L (0-33); Albumin Level 4.2 g/dL (3.5-5.2); Alkaline Phosphatase 59 U/L (35-105); Aspartate Amino Transferase 14 U/L (0-32); Creatinine Clr Calc Pharmacy 60.9883; Globulin 2.4 g/dL (1.3-4.6); Glomerular Filtration Rate 62.8 mL/min (90-130); Total Bilirubin 0.2 mg/dL (0.15-1.2); Total Protein 6.6 g/dL (6.6-8.7)
[2024-11-03 15:46] LABS: Erythrocyte Sedimentation Rate 1 mm/hr (0-15)
[2024-11-03] MEDS: anifrolumab-fnia 300 MG in sodium chloride 0.9% (100 ml) 100 ML 204 MG IV (15:47)
[2024-11-03 15:59] LABS: Urine Creatinine 114 mg/dL (28-217); Urine Protein Random 7 mg/dL
[2024-11-03 16:01] LABS: 25 Hydroxy Vitamin D 82 ng/mL (30-100)
[2024-11-03 16:34] VITALS: BP 124/78; PULSE 64; RESP 18; TEMP 36.6; O2SAT 97
[2024-11-03 16:44] LABS: Hepatitis B Core AB, Total Non-Reactive (Nonreactive); Hepatitis B Surface Antigen Non-Reactive (Nonreactive); Hepatitis C Virus Antibody Non-Reactive (Nonreactive)
[2024-11-05 17:39] LABS: Quantiferon Mitogen 8.09 IU/mL; Quantiferon Nil 0.05 IU/mL; Quantiferon Plus TB1 0.02 IU/mL; Quantiferon Plus TB2 0.03 IU/mL; Quantiferon TB Gold NEGATIVE (NEGATIVE)
== END 2024-11-26 23:59 | disposition home or self-care (01) ==
PROVIDERS: PCP Family Medicine; Visit Provider Internal Medicine Rheumatology
DX: M32.9 Systemic lupus erythematosus, unspecified (principal); Z79.899 Other long term (current) drug therapy; M19.90 Unspecified osteoarthritis, unspecified site; Z11.1 Encounter for screening for respiratory tuberculosis
CPT/HCPCS: 80076; 81001; 82306; 82565; 82570; 84156; 85025; 85651; 86140; 86480; 86704; 86803; 87340; 96413; 99214; A4222; J0491

== ENCOUNTER 2024-12-01 12:53 | Oncology outpatient (recurring) (ONCR) | payer MEDICARE, OTHER, SELFPAY ==
[2024-12-01] MEDS: acetaminophen 325 mg Tablet 650 MG PO (13:24)
[2024-12-01] MEDS: diphenhydrAMINE 25 mg Capsule PO (13:25)
[2024-12-01] MEDS: famotidine 20 mg Tablet PO (13:25)
[2024-12-01] MEDS: anifrolumab-fnia 300 MG in sodium chloride 0.9% (100 ml) 100 ML 204 MG IV (13:52)
[2024-12-01 17:42] VITALS: BP 134/70; PULSE 68; RESP 16; TEMP 36.8; O2SAT 98
== END 2024-12-27 23:59 | disposition home or self-care (01) ==
PROVIDERS: PCP Family Medicine; Visit Provider Internal Medicine Rheumatology
DX: M32.9 Systemic lupus erythematosus, unspecified (principal); Z79.899 Other long term (current) drug therapy
CPT/HCPCS: 96413; A4222; J0491; J9999

== ENCOUNTER 2025-01-05 12:50 | Oncology outpatient (recurring) (ONCR) | payer MEDICARE, OTHER, SELFPAY ==
[2025-01-05] MEDS: diphenhydrAMINE 25 mg Capsule PO (14:30)
[2025-01-05] MEDS: famotidine 20 mg Tablet PO (14:30)
[2025-01-05] MEDS: acetaminophen 325 mg Tablet 650 MG PO (14:30)
[2025-01-05] MEDS: anifrolumab-fnia 300 MG in sodium chloride 0.9% (100 ml) 100 ML 204 MG IV (14:58)
[2025-01-05 15:41] VITALS: BP 130/83; PULSE 68; RESP 18; TEMP 36.1; O2SAT 98
== END 2025-01-26 23:59 | disposition home or self-care (01) ==
PROVIDERS: PCP Family Medicine; Visit Provider Internal Medicine Rheumatology
DX: M32.9 Systemic lupus erythematosus, unspecified (principal); Z79.899 Other long term (current) drug therapy
CPT/HCPCS: 96365; A4222; J0491; J9999

== ENCOUNTER 2025-02-02 13:27 | Oncology outpatient (recurring) (ONCR) | payer MEDICARE, OTHER, SELFPAY ==
[2025-02-02] MEDS: acetaminophen 325 mg Tablet 650 MG PO (13:54)
[2025-02-02] MEDS: diphenhydrAMINE 25 mg Capsule PO (13:54)
[2025-02-02] MEDS: famotidine 20 mg Tablet PO (13:54)
[2025-02-02] MEDS: anifrolumab-fnia 300 MG in sodium chloride 0.9% (100 ml) 100 ML 204 MG IV (14:19)
[2025-02-02 14:55] VITALS: BP 126/72; PULSE 52; TEMP 36.7; O2SAT 94
== END 2025-02-26 23:59 | disposition home or self-care (01) ==
PROVIDERS: PCP Family Medicine; Visit Provider Internal Medicine Rheumatology
DX: M32.9 Systemic lupus erythematosus, unspecified (principal); Z79.899 Other long term (current) drug therapy
CPT/HCPCS: 96413; A4222; J0491; J9999

== ENCOUNTER 2025-03-02 11:58 | Oncology outpatient (recurring) (ONCR) | payer MEDICARE, OTHER, SELFPAY ==
[2025-03-02 13:26] LABS: Basophils # 0.1 10^3/uL (0.0-0.1); Basophils % 0.9 %; Eosinophils # 0.5 10^3/uL (0.0-0.8); Eosinophils % 4.6 %; Hematocrit 39.7 % (36-47); Lymphocytes # 1.5 10^3/uL (0.8-4.8); Lymphocytes % 15.6 %; Mean Corpuscular HGB Conc 32.7 g/dL (30-55); Mean Corpuscular Hemoglobin 30.4 pg (27-33); Mean Platelet Volume 11.8 fL (7.4-10.4); Monocytes # 0.6 10^3/uL (0.2-0.9); Monocytes % 6.5 %; Neutrophils # 6.98 10^3/uL (1.8-7.7); Nucleated Red Blood Cells % 0 %; Platelet Count 197 10^3/cmm (157-399); Red Blood Count 4.27 10^6/uL (3.85-5.65); Red Cell Distribution Width 14.1 % (12.1-15.1)
[2025-03-02 13:30] LABS: Erythrocyte Sedimentation Rate < 1 mm/hr (0-15)
[2025-03-02] MEDS: acetaminophen 325 mg Tablet 650 MG PO (13:44)
[2025-03-02] MEDS: famotidine 20 mg Tablet PO (13:45)
[2025-03-02] MEDS: diphenhydrAMINE 25 mg Capsule PO (13:46)
[2025-03-02] MEDS: anifrolumab-fnia 300 MG in sodium chloride 0.9% (100 ml) 100 ML 204 MG IV (13:50)
[2025-03-02 14:18] LABS: 25 Hydroxy Vitamin D 59 ng/mL (30-100); Alanine Aminotransferase 15 U/L (0-33); Albumin Level 4.3 g/dL (3.5-5.2); Alkaline Phosphatase 81 U/L (35-105); Aspartate Amino Transferase 21 U/L (0-32); Globulin 2.2 g/dL (1.3-4.6); Glomerular Filtration Rate 62.8 mL/min (90-130); Total Bilirubin 0.2 mg/dL (0.15-1.2); Total Protein 6.5 g/dL (6.6-8.7)
[2025-03-02 14:36] VITALS: BP 128/78; PULSE 55; TEMP 36.7
== END 2025-03-28 23:59 | disposition home or self-care (01) ==
PROVIDERS: PCP Family Medicine; Visit Provider Internal Medicine Rheumatology
DX: M32.9 Systemic lupus erythematosus, unspecified (principal); M06.00 Rheumatoid arthritis without rheumatoid factor, unspecified site; Z79.899 Other long term (current) drug therapy; Z86.16 Personal history of COVID-19; R74.01 Elevation of levels of liver transaminase levels; E21.0 Primary hyperparathyroidism
CPT/HCPCS: 80076; 82306; 82565; 85025; 85651; 86140; 96365; 99214; A4222; J0491; J9999

== ENCOUNTER 2025-03-30 11:41 | Oncology outpatient (recurring) (ONCR) | payer MEDICARE, OTHER, SELFPAY ==
--- NOTE | 2025-03-30 12:18 | PC.NURSE ---
Patient answered yes to cough and shortness of breath however states it is related to cardiac issues, not RHEO.
[2025-03-30] MEDS: anifrolumab-fnia 300 MG in sodium chloride 0.9% (100 ml) 100 ML 204 MG IV (13:05)
[2025-03-30 13:44] VITALS: BP 157/85; PULSE 88; TEMP 36.7; O2SAT 95
== END 2025-04-28 23:59 | disposition home or self-care (01) ==
PROVIDERS: PCP Family Medicine; Visit Provider Internal Medicine Rheumatology
DX: M32.9 Systemic lupus erythematosus, unspecified (principal); Z79.899 Other long term (current) drug therapy
CPT/HCPCS: 96413; A4222; J0491; J9999

== ENCOUNTER 2025-05-02 12:16 | Oncology outpatient (recurring) (ONCR) | payer MEDICARE, OTHER, SELFPAY ==
[2025-05-02] MEDS: anifrolumab-fnia 300 MG in sodium chloride 0.9% (100 ml) 100 ML 204 MG IV (13:48)
[2025-05-02 14:38] VITALS: BP 149/75; PULSE 57; O2SAT 93
== END 2025-05-29 23:59 | disposition home or self-care (01) ==
PROVIDERS: PCP Family Medicine; Visit Provider Internal Medicine Rheumatology
DX: M32.9 Systemic lupus erythematosus, unspecified (principal); Z79.899 Other long term (current) drug therapy
CPT/HCPCS: 96413; A4222; J0491; J9999